=== PATIENT | female | born 1965 | race Caucasian/White ===

== ENCOUNTER 2017-04-18 13:35 | Emergency (ER) | payer MEDICAID ==
[~2017-04-18] VITALS: Ht 165.1 cm; Wt 95.9 kg
[~2017-04-18 13:35] MED LIST: ASPI81TA52 PO; BISA-77 PO; CEPH-357 PO; CHLO500C10 PO; DOCU100C23 PO; FERR325T28 PO; KEP500T PO; LEV500T PO; LEVO100T46 PO; MULT-785 PO; NORG1TAB56 PO; PHEN-403 PO; SODI1TAB23 PO; TEG100T PO; ZIPR20CA2 PO; ZIPR80CA2 PO
[2017-04-18 13:49] VITALS: BP 106/78
== END 2017-04-18 16:55 | disposition home or self-care (01) ==
LOC: ER 13:35
DX: S63.286A Dislocation of proximal interphalangeal joint of right little finger, initial encounter (principal); Z79.82 Long term (current) use of aspirin; W20.8XXA Other cause of strike by thrown, projected or falling object, initial encounter; Y93.89 Activity, other specified; Y92.89 Other specified places as the place of occurrence of the external cause; Y99.8 Other external cause status
CPT/HCPCS: 26770; 73140; 99284

== ENCOUNTER 2017-04-27 12:54 | Outpatient (CLI) | payer MEDICAID ==
[2017-04-27 12:55] VITALS: BP 104/67
== END 2017-04-27 13:45 | disposition home or self-care (01) ==
LOC: ORTHO 12:54
PROVIDERS: ATTEND Nurse Practitioner Family
DX: S63.279A Dislocation of unspecified interphalangeal joint of unspecified finger, initial encounter (principal); F32.9 Major depressive disorder, single episode, unspecified; Z79.82 Long term (current) use of aspirin; X58.XXXA Exposure to other specified factors, initial encounter; Y93.89 Activity, other specified; Y92.89 Other specified places as the place of occurrence of the external cause; Y99.8 Other external cause status; E07.9 Disorder of thyroid, unspecified
CPT/HCPCS: 29130

== ENCOUNTER 2017-04-29 12:04 | Emergency (ER) | payer MEDICAID ==
[~2017-04-29] VITALS: Ht 167.6 cm; Wt 95.9 kg
[2017-04-29] MEDS ORDERED: LIDOcaine 1.5% w/epinephrine 1:200,000 5ml ampul IJ ONE (12:45)
[2017-04-29] MEDS ORDERED: TETanus/Pertussis (Acell)/Diphther VAC/PF (Tdap-Adult) 0.5ml syringe IM ONE (12:45)
[2017-04-29 13:09] LABS: BASOPHILS % (AUTO) 0.3 % (0-1); EOSINOPHILS # (AUTO) 0.1 X10'3 (0-0.9); EOSINOPHILS % (AUTO) 1.2 % (0-6); HEMATOCRIT 41.3 % (35.0-45.0); HEMOGLOBIN 13.8 g/dl (12.0-16.0); LYMPHOCYTES # (AUTO) 1.9 X10'3 (1.1-4.8); LYMPHOCYTES % (AUTO) 20.7 % (21-51); MEAN CORPUSCULAR HEMOGLOBIN 30.2 PG (27.0-31.0); MEAN CORPUSCULAR HGB CONC 33.3 % (33.0-36.5); MEAN CORPUSCULAR VOLUME 90.6 FL (78-98); MEAN PLATELET VOLUME 6.9 FL (7.4-10.4); MONOCYTES # (AUTO) 0.5 X10'3 (0-0.9); MONOCYTES % (AUTO) 5.4 % (2-12); NEUTROPHILS # (AUTO) 6.6 X10'3 (1.8-7.7); NEUTROPHILS % (AUTO) 72.4 % (42-75); PLATELET COUNT 344 X10'3 (140-440); RED BLOOD COUNT 4.56 X10'6 (4.20-5.60); RED CELL DISTRIBUTION WIDTH 13.6 % (11.5-14.5); WHITE BLOOD COUNT 9.1 X10'3 (4.5-11.0)
[2017-04-29 13:20] LABS: PARTIAL THROMBOPLASTIN TIME 31 SECONDS (22-32); PROTHROMBIN TIME 10.3 SECONDS (9.0-12.0)
[2017-04-29 13:25] LABS: ALANINE AMINOTRANSFERASE 29 U/L (12-78); ALBUMIN 3.3 G/DL (3.4-5.0); ALBUMIN/GLOBULIN RATIO 0.8 (1.1-1.5); ANION GAP 4 (8-16); ASPARTATE AMINO TRANSFERASE 26 U/L (10-37); BILIRUBIN,TOTAL 0.3 MG/DL (0.1-1.0); BLOOD UREA NITROGEN 10 MG/DL (7-18); CALCIUM 8.7 MG/DL (8.5-10.1); CARBAMAZEPINE (TEGRETOL) 4.1 UG/ML (4.0-12.0); CHLORIDE 101 MMOL/L (99-107); CREATININE 0.77 MG/DL (0.40-0.90); GLUCOSE 140 MG/DL (70-104); PHENYTOIN (DILANTIN) 12.3 UG/ML (10.0-20.0); POTASSIUM 3.8 MMOL/L (3.5-5.1); SODIUM 137 MMOL/L (135-145); TOTAL CARBON DIOXIDE 32.4 MMOL/L (24-32); TOTAL PROTEIN 7.4 G/DL (6.4-8.2); eGFR 79 ML/MIN
[2017-04-29 13:36] LABS: ALKALINE PHOSPHATASE 211 IU/L (46-116)
[2017-04-29] MEDS ORDERED: phenytoin sod ER 100mg capsule PO ONE (13:45)
[2017-04-29] MEDS ORDERED: LIDOcaine 1% 30ml vial IJ ONE (13:45)
[2017-04-29 14:51] VITALS: BP 125/75
== END 2017-04-29 15:06 | disposition home or self-care (01) ==
LOC: ER 12:04
DX: S01.01XA Laceration without foreign body of scalp, initial encounter (principal); G40.909 Epilepsy, unspecified, not intractable, without status epilepticus; G20 Parkinson's disease; F03.90 Unspecified dementia, unspecified severity, without behavioral disturbance, psychotic disturbance, mood disturbance, and anxiety; X58.XXXA Exposure to other specified factors, initial encounter; Y93.89 Activity, other specified; Y92.89 Other specified places as the place of occurrence of the external cause; Y99.8 Other external cause status; Z79.01 Long term (current) use of anticoagulants; Z56.0 Unemployment, unspecified; Z79.899 Other long term (current) drug therapy
CPT/HCPCS: 12001; 36415; 70450; 80053; 80156; 80185; 83735; 85025; 85610; 85730; 90471; 90715; 99285; A6446; A6449; J3490

== ENCOUNTER 2017-05-04 10:35 | Outpatient (CLI) | payer MEDICAID ==
[2017-05-04 10:38] VITALS: BP 102/75
== END 2017-05-04 12:00 | disposition home or self-care (01) ==
LOC: ORTHO 10:35
PROVIDERS: ATTEND Nurse Practitioner Family
DX: S63.279D Dislocation of unspecified interphalangeal joint of unspecified finger, subsequent encounter (principal); E03.9 Hypothyroidism, unspecified; Z79.82 Long term (current) use of aspirin; Z98.890 Other specified postprocedural states; Z88.8 Allergy status to other drugs, medicaments and biological substances; X58.XXXD Exposure to other specified factors, subsequent encounter
CPT/HCPCS: 73140

== ENCOUNTER 2017-06-01 09:25 | Day surgery (SDC) | payer MEDICAID ==
[2017-05-26 15:48] LABS: BASOPHILS % (AUTO) 0.6 % (0-1); EOSINOPHILS % (AUTO) 0 % (0-6); LYMPHOCYTES # (AUTO) 2.2 X10'3 (1.1-4.8); LYMPHOCYTES % (AUTO) 34.5 % (21-51); MEAN CORPUSCULAR HEMOGLOBIN 30.8 PG (27.0-31.0); MEAN CORPUSCULAR VOLUME 90.4 FL (78-98); MEAN PLATELET VOLUME 7.1 FL (7.4-10.4); MONOCYTES # (AUTO) 0.5 X10'3 (0-0.9); MONOCYTES % (AUTO) 8.2 % (2-12); NEUTROPHILS # (AUTO) 3.6 X10'3 (1.8-7.7); NEUTROPHILS % (AUTO) 56.7 % (42-75); PRE OP HEMATOCRIT 39.6 % (35.0-45.0); PRE OP HEMOGLOBIN 13.5 g/dL (12.0-16.0); PRE OP PLATELET COUNT 376 X10'3 (140-440); RED BLOOD COUNT 4.38 X10'6 (4.20-5.60); RED CELL DISTRIBUTION WIDTH 14.2 % (11.5-14.5)
[2017-05-26 16:04] LABS: ALBUMIN 3.2 G/DL (3.4-5.0); ALBUMIN/GLOBULIN RATIO 0.8 (1.1-1.5); ALKALINE PHOSPHATASE 208 IU/L (46-116); BLOOD UREA NITROGEN 10 MG/DL (7-18); BUN/CREATININE RATIO 12.7 (6.6-38.0); CALCIUM 8.8 MG/DL (8.5-10.1); CHLORIDE 104 MMOL/L (99-107); CREATININE 0.79 MG/DL (0.40-0.90); PRE OP ALT 28 U/L (30-65); PRE OP ANION GAP 5 (8-16); PRE OP AST 25 U/L (10-37); PRE OP BILIRUB, TOTAL 0.2 MG/DL (0.0-1.0); PRE OP GLUCOSE 93 MG/DL (70-104); PRE OP POTASSIUM 4.2 MMOL/L (3.4-5.1); PRE OP SODIUM 141 MMOL/L (135-145); TOTAL CARBON DIOXIDE 32.5 MMOL/L (24-32); TOTAL PROTEIN 7.2 G/DL (6.4-8.2); eGFR 76 ML/MIN
[~2017-06-01] VITALS: Ht 167.6 cm; Wt 98.0 kg
[2017-06-01] VITALS (9 sets, daily range): BP systolic 95–124; BP diastolic 61–75
[~2017-06-01 09:25] MED LIST changes: -CHLO500C10 PO; +LAMO150T PO; -LEV500T PO; -NORG1TAB56 PO; -PHEN-403 PO; +PHEN100C4 PO; +TEN1T CORPAK; -ZIPR20CA2 PO; +ZIPR40CA2 PO; -ZIPR80CA2 PO; +cefazolin/dext.iso 2gm/50ml 50 ML IV ONE; +famotidine 20mg tablet PO ONE; +ringers solution, lacted 1,000 ML IV SCH; +vancomycin inj 1,500 MG in normal saline 300ml IV soln IV ONE
[2017-06-01] MEDS ORDERED: LIDOcaine 1% (10mg/ml) 2ml vial ONE (11:56)
[2017-06-01] MEDS ORDERED: ceFAZolin 1000mg inj ONE (12:19)
[2017-06-01] MEDS ORDERED: bacitracin 15gm ointment TP ONE ×2 (12:19→12:28)
[2017-06-01] MEDS ORDERED: BUPIVAcaine/PF 2.5 mg/ml (0.25%) 30ml vial ONE ×3 (12:20→13:23)
[2017-06-01] MEDS ORDERED: ringers solution, lacted 1,000 ML IV SCH (12:44)
[2017-06-01] MEDS ORDERED: ketorolac tromethamine 15mg/ml inj. IV ONE (12:45)
[2017-06-01] MEDS ORDERED: meperidine/PF 50mg/ml syringe IV PRN ×3 (12:45)
[2017-06-01] MEDS ORDERED: proCHLORperazine 10 MG/2 ml inj IV PRN (12:45)
[2017-06-01] MEDS ORDERED: morphine 2 MG/ML inj. syringe IV PRN ×2 (12:45)
[2017-06-01] MEDS ORDERED: acetaminophen 1,000mg/100ml IV 100 ML IV PRN (12:45)
[2017-06-01] MEDS ORDERED: ondansetron/PF 4mg/2ml inj IV PRN (12:45)
[2017-06-01] MEDS ORDERED: midazolam 2 mg/2 ml injection ONE (12:52)
[2017-06-01] MEDS ORDERED: fentaNYL/PF 50MCG/1 ML 2ML syringe ONE (13:15)
[2017-06-01] MEDS ORDERED: ePHEDrine 50MG/ML INJ. ONE (13:23)
[2017-06-01] MEDS ORDERED: LIDOcaine 2% (20mg/ml) 5ml vial ONE (13:23)
[2017-06-01] MEDS ORDERED: propofol inj 20 ML IV ONE (13:23)
== END 2017-06-01 15:45 | disposition home or self-care (01) ==
LOC: PAS 09:25
PROVIDERS: ATTEND Orthopaedic Surgery
DX: S62.616A Displaced fracture of proximal phalanx of right little finger, initial encounter for closed fracture (principal); S63.286A Dislocation of proximal interphalangeal joint of right little finger, initial encounter; G20 Parkinson's disease; E03.9 Hypothyroidism, unspecified; F32.9 Major depressive disorder, single episode, unspecified; F41.9 Anxiety disorder, unspecified; Z79.82 Long term (current) use of aspirin; Z79.2 Long term (current) use of antibiotics; Z79.899 Other long term (current) drug therapy; W18.39XA Other fall on same level, initial encounter; Y93.89 Activity, other specified; Y92.9 Unspecified place or not applicable; Y99.8 Other external cause status
CPT/HCPCS: 26746; 36415; 80053; 85025; 93005; A4565; A6449; J0690; J2001; J2250; J2704; J3010; J3370; J3490; J7120; A7000

== ENCOUNTER 2017-06-10 10:44 | Outpatient (CLI) | payer MEDICAID ==
[~2017-06-10 10:44] MED LIST changes: -cefazolin/dext.iso 2gm/50ml 50 ML IV ONE; -famotidine 20mg tablet PO ONE; -ringers solution, lacted 1,000 ML IV SCH; -vancomycin inj 1,500 MG in normal saline 300ml IV soln IV ONE
[2017-06-10 10:46] VITALS: BP 126/72
== END 2017-06-10 11:55 | disposition home or self-care (01) ==
LOC: ORTHO 10:44
PROVIDERS: ATTEND Nurse Practitioner Family
DX: S63.279D Dislocation of unspecified interphalangeal joint of unspecified finger, subsequent encounter (principal); F32.9 Major depressive disorder, single episode, unspecified; W01.0XXD Fall on same level from slipping, tripping and stumbling without subsequent striking against object, subsequent encounter
CPT/HCPCS: 29125; 99214; A6449

== ENCOUNTER 2017-06-28 11:33 | Outpatient (CLI) | payer MEDICAID | END 2017-06-28 12:25 | disposition home or self-care (01) | LOC: ORTHO 11:33 | PROVIDERS: ATTEND Nurse Practitioner Family | DX: S63.279D Dislocation of unspecified interphalangeal joint of unspecified finger, subsequent encounter (principal); M79.89 Other specified soft tissue disorders; F32.9 Major depressive disorder, single episode, unspecified; R56.9 Unspecified convulsions; X58.XXXD Exposure to other specified factors, subsequent encounter | CPT/HCPCS: 29280; 73140; 99213 ==

== ENCOUNTER 2017-08-02 08:49 | Outpatient (CLI) | payer MEDICAID | END 2017-08-02 09:10 | disposition home or self-care (01) | LOC: ORTHO 08:49 | PROVIDERS: ATTEND Nurse Practitioner Family | DX: S63.27 Dislocation of unspecified interphalangeal joint of finger (principal); F32.9 Major depressive disorder, single episode, unspecified; Z56.0 Unemployment, unspecified; W01.0XXD Fall on same level from slipping, tripping and stumbling without subsequent striking against object, subsequent encounter | CPT/HCPCS: 73140; 99212 ==

== ENCOUNTER 2018-04-26 10:45 | Emergency (ER) | payer MEDICAID ==
[~2018-04-26] VITALS: Ht 152.4 cm; Wt 98.8 kg
[~2018-04-26 10:45] MED LIST changes: +DOCU-274 PO; -DOCU100C23 PO
--- NOTE | 2018-04-26 11:16 | NUR ---
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
--- NOTE | 2018-04-26 11:19 | NUR ---
BURGLAR ALARM INSPECTOR AT BEDSIDE
[2018-04-26] MEDS ORDERED: TETanus/Pertussis (Acell)/Diphther VAC/PF (Tdap-Adult) 0.5ml syringe IM ONE (11:40)
[2018-04-26] MEDS ORDERED: LIDOcaine 1.5% w/epinephrine 1:200,000 5ml ampul IJ ONE (11:40)
[2018-04-26] MEDS ORDERED: LIDOcaine 1% w/epiNEPHrine 1:200,000 30ml vial IJ ONE (11:45)
[2018-04-26 12:07] LABS: CARBAMAZEPINE (TEGRETOL) 3.5 UG/ML (4.0-12.0); PHENYTOIN (DILANTIN) 15.4 UG/ML (10.0-20.0)
[2018-04-26] MEDS ORDERED: carBAMazepine Ext. Release 200 MG TAB.ER.12H PO ONE (12:30)
[2018-04-26 13:21] VITALS: BP 115/63
== END 2018-04-26 13:27 | disposition home or self-care (01) ==
LOC: ER 10:46
DX: S01.412A Laceration without foreign body of left cheek and temporomandibular area, initial encounter (principal); G40.909 Epilepsy, unspecified, not intractable, without status epilepticus; E03.9 Hypothyroidism, unspecified; Z79.82 Long term (current) use of aspirin; Z79.899 Other long term (current) drug therapy; Z79.2 Long term (current) use of antibiotics; Z56.0 Unemployment, unspecified; W22.8XXA Striking against or struck by other objects, initial encounter; Y93.89 Activity, other specified; Y92.89 Other specified places as the place of occurrence of the external cause; Y99.8 Other external cause status
CPT/HCPCS: 12011; 36415; 80156; 80185; 90471; 90715; 99284; J3490

== ENCOUNTER 2018-05-01 08:57 | Emergency (ER) | payer MEDICAID ==
[~2018-05-01] VITALS: Ht 177.8 cm; Wt 97.1 kg
[2018-05-01 09:04] VITALS: BP 100/69
== END 2018-05-01 10:09 | disposition home or self-care (01) ==
LOC: ER 08:58
DX: S01.412D Laceration without foreign body of left cheek and temporomandibular area, subsequent encounter (principal); E03.9 Hypothyroidism, unspecified; Z56.0 Unemployment, unspecified; Z79.899 Other long term (current) drug therapy; Z79.82 Long term (current) use of aspirin; W22.8XXD Striking against or struck by other objects, subsequent encounter
CPT/HCPCS: 99281

== ENCOUNTER 2018-06-10 10:18 | Inpatient (IN) | payer MEDICAID ==
[2018-06-10] VITALS (12 sets, daily range): BP systolic 87–121; BP diastolic 53–88
[~2018-06-10] VITALS: Ht 162.6 cm; Wt 95.0 kg
[2018-06-10] MEDS ORDERED: ketamine 50 mg/ml 10ml vial IV ONE (10:35)
[2018-06-10] MEDS ORDERED: ceFAZolin 1GM/D5W- ADD-VANTAGE 50 ML IV ONE (10:35)
[2018-06-10] MEDS ORDERED: ondansetron/PF 4mg/2ml inj IV ONE (10:35)
[2018-06-10] MEDS ORDERED: normal saline 1000ML IV soln IVB ONE (10:35)
--- NOTE | 2018-06-10 11:10 | NUR ---
PATIENT TOLERATED THE REDUCTION OF THE RADIAL FRACTURE VERY WELL. SHE DID NOT DESAT DURING THE PROCEDURE AND MAINTAINED AN ETCO2 OF 39.
--- NOTE | 2018-06-10 11:45 | NUR ---
COMPLETELY RECOVERED FROM THE USE OF KETAMINE. ALERT AND BREATHING WELL
[2018-06-10] MEDS ORDERED: acetaminophen 325mg tablet PO PRN ×2 (12:15)
[2018-06-10] MEDS ORDERED: mag hydrox/Alum hydrox/simeth 30ml oral suspension PO PRN (12:15)
[2018-06-10] MEDS ORDERED: HYDROcodone/acetaminophen 5mg/325mg tablet PO PRN (12:15)
[2018-06-10] MEDS ORDERED: magnesium 4gm in 100ml NS 100 ML IV PRN (12:15)
[2018-06-10] MEDS ORDERED: magnesium Cl slow-release 64mg tablet PO PRN (12:15)
[2018-06-10] MEDS ORDERED: magnesium 2GM in 50ml NS 50 ML IV PRN (12:15)
[2018-06-10] MEDS ORDERED: morphine 4 MG/ML inj SYRINge IV PRN ×4 (12:15→15:35)
[2018-06-10] MEDS ORDERED: potassium Cl 40MEQ/NS 500ml 500 ML IV PRN ×2 (12:15)
[2018-06-10] MEDS ORDERED: potassium Cl 20 mEq SR tablet PO PRN (12:15)
[2018-06-10] MEDS ORDERED: magnesium hydroxide 30ml (MOM) UD suspension PO PRN (12:15)
[2018-06-10] MEDS ORDERED: ondansetron/PF 4mg/2ml inj IV PRN ×2 (12:15→15:35)
[2018-06-10 12:22] LABS: BASOPHILS # (AUTO) 0.1 X10'3 (0-0.2); BASOPHILS % (AUTO) 1.3 % (0-1); EOSINOPHILS % (AUTO) 0 % (0-6); HEMATOCRIT 42.2 % (35.0-45.0); HEMOGLOBIN 13.9 g/dl (12.0-16.0); LYMPHOCYTES # (AUTO) 1.2 X10'3 (1.1-4.8); LYMPHOCYTES % (AUTO) 16.6 % (21-51); MEAN CORPUSCULAR HEMOGLOBIN 30.3 PG (27.0-31.0); MEAN CORPUSCULAR HGB CONC 33.1 g/dL (33.0-36.5); MEAN CORPUSCULAR VOLUME 91.7 FL (78-98); MEAN PLATELET VOLUME 7.5 FL (7.4-10.4); MONOCYTES # (AUTO) 0.5 X10'3 (0-0.9); MONOCYTES % (AUTO) 7.5 % (2-12); NEUTROPHILS # (AUTO) 5.4 X10'3 (1.8-7.7); NEUTROPHILS % (AUTO) 74.6 % (42-75); PLATELET COUNT 345 X10'3 (140-440); WHITE BLOOD COUNT 7.3 X10'3 (4.5-11.0)
[2018-06-10 12:33] LABS: PARTIAL THROMBOPLASTIN TIME 30 SECONDS (22-32); PROTHROMBIN TIME 10.3 SECONDS (9.0-12.0)
[2018-06-10 12:37] LABS: ALANINE AMINOTRANSFERASE 21 U/L (12-78); ALBUMIN 3.5 G/DL (3.4-5.0); ALBUMIN/GLOBULIN RATIO 0.9 (1.1-1.5); ALKALINE PHOSPHATASE 180 IU/L (46-116); ANION GAP 7 (8-16); ASPARTATE AMINO TRANSFERASE 25 U/L (10-37); BILIRUBIN,TOTAL 0.3 MG/DL (0.1-1.0); BLOOD UREA NITROGEN 7 MG/DL (7-18); BUN/CREATININE RATIO 9.1 (6.6-38.0); CALCIUM 9.2 MG/DL (8.5-10.1); CHLORIDE 104 MMOL/L (99-107); CREATININE 0.77 MG/DL (0.40-0.90); GLUCOSE 95 MG/DL (70-104); POTASSIUM 4.1 MMOL/L (3.5-5.1); SODIUM 140 MMOL/L (135-145); TOTAL CARBON DIOXIDE 28.8 MMOL/L (24-32); TOTAL PROTEIN 7.6 G/DL (6.4-8.2); eGFR 78 ML/MIN
[2018-06-10] MEDS: morphine 4 MG/ML inj SYRINge IV SCH ×2 (12:40→20:00)
[2018-06-10] MEDS: normal saline 1000ml 1,000 ML IV SCH (12:43)
[2018-06-10 12:46] LABS: PHENYTOIN (DILANTIN) 12.7 UG/ML (10.0-20.0)
--- NOTE | 2018-06-10 13:52 | NUR ---
CAREGIVER LEAVING WITH NUMBER TO CONTACT [phone]. STATED THAT PT. IS NOT CONSERVED AND CAN SIGN HER OWN CONCENTS.
[2018-06-10] MEDS ORDERED: LIDOcaine 1% (10mg/ml) 2ml vial ONE (14:23)
[2018-06-10] MEDS ORDERED: sevoflurane 250ml liquid IH ONE (14:32)
[2018-06-10] MEDS ORDERED: fentaNYL /PF 50mcg/ml 5ml ampule ONE (14:33)
[2018-06-10] MEDS ORDERED: midazolam 2 mg/2 ml injection ONE (14:33)
[2018-06-10] MEDS ORDERED: ceFAZolin 1000mg inj ONE ×2 (14:54)
[2018-06-10] MEDS ORDERED: propofol inj 20 ML IV ONE (14:54)
[2018-06-10] MEDS ORDERED: ringers solution, lacted 1,000 ML IV SCH (15:33)
[2018-06-10] MEDS ORDERED: proCHLORperazine 10 MG/2 ml inj IV PRN (15:35)
[2018-06-10] MEDS ORDERED: meperidine/PF 25mg/ml syringe IV PRN ×2 (15:35)
[2018-06-10] MEDS ORDERED: ceFAZolin 1GM/D5W- ADD-VANTAGE 50 ML IV SCH (16:00)
--- NOTE | 2018-06-10 16:10 | NUR ---
Received from OR via , accompanied by Anesthesiologist DR DÍAZ and report given by Anesthesiolgist. PT WAKES TO VOICE, SKIN WARM AND PINK, SCDS, PIV LEFT WRIST 22G WITH NS 100MLS/HR, RIGHT UE WITH SPLINT, ANGIE WRAP AND SLING, NO C/O PAIN, RIGHT HAND SKIN WARM, MOVING FINGERS.
[2018-06-10] MEDS: meperidine/PF 25mg/ml syringe IV PRN ×2 (16:13→16:22)
--- NOTE | 2018-06-10 16:30 | NUR ---
i HAVE RECEIVED REPORT FROM KRISTA IN [facility]
--- NOTE | 2018-06-10 16:37 | NUR ---
ReceReport called to receiving nurse. Transferred via BED Belongings . Special Issues communicated to receiving nurse KELECHI BREWER. PT IS AWAKE, DUE TO DEVEOPMENTAL DELAY PATIENT SHOUTS OUT AND CRIES. DISTRACTION TECHNIQUES SOMEWHAT EFFECTIVE. RIGHT UE ELEVATED, ICED AND GIVEN DEMEROL FOR PAIN, RIGHT HAND HAS +MOTION, PINK COLOR, AND WARM TO TOUCH, SPINT, ANGIE AND SLING IN PLACE, CD, VSS, PIV PATENT.
[2018-06-10] MEDS: HYDROcodone/acetaminophen 10/325mg tab PO PRN (16:57)
[2018-06-10] MEDS: ceFAZolin 1GM/D5W- ADD-VANTAGE 50 ML IV SCH (17:03)
--- NOTE | 2018-06-10 17:48 | NUR ---
PAGER ID: [phone] MESSAGE: Patient Valerie Castorena is refusing lab. Samina Emerson [id number] Addendum: 06/10/18 at 1755 by Laila Pascual RN feed research technician said that she would add this test onto AM labs because the test has to be sent out, and it would have to wait until then either way.
--- NOTE | 2018-06-10 18:10 | NUR ---
DR. Beaulieu aware of patient refusing lab
--- NOTE | 2018-06-10 18:27 | NUR ---
I gave patient report to Valerie BREWER
[2018-06-10] MEDS: heparin, porcine 5000 units/ml vial SQ SCH (19:22)
[2018-06-10] MEDS ORDERED: temazepam 15mg capsule PO PRN (21:00)
[2018-06-11] MEDS: normal saline 1000ml 1,000 ML IV SCH ×3 (01:09→21:04)
[2018-06-11] MEDS: ceFAZolin 1GM/D5W- ADD-VANTAGE 50 ML IV SCH ×4 (01:13→23:53)
[2018-06-11 02:32] VITALS: BP 118/75
--- NOTE | 2018-06-11 03:08 | NUR ---
reviewed and agree with SRN assessment findings.
[2018-06-11] MEDS: HYDROcodone/acetaminophen 10/325mg tab PO PRN ×5 (03:51→21:04)
[2018-06-11] MEDS: morphine 4 MG/ML inj SYRINge IV SCH ×4 (04:00→12:00)
[2018-06-11 06:00] VITALS: BP 108/68
[2018-06-11 06:15] LABS: BASOPHILS # (AUTO) 0.1 X10'3 (0-0.2); EOSINOPHILS % (AUTO) 0 % (0-6); HEMATOCRIT 37.5 % (35.0-45.0); HEMOGLOBIN 12.3 g/dl (12.0-16.0); LYMPHOCYTES # (AUTO) 1.5 X10'3 (1.1-4.8); LYMPHOCYTES % (AUTO) 20.4 % (21-51); MEAN CORPUSCULAR HEMOGLOBIN 30.1 PG (27.0-31.0); MEAN CORPUSCULAR HGB CONC 32.8 g/dL (33.0-36.5); MEAN CORPUSCULAR VOLUME 91.8 FL (78-98); MEAN PLATELET VOLUME 7.5 FL (7.4-10.4); MONOCYTES # (AUTO) 0.7 X10'3 (0-0.9); MONOCYTES % (AUTO) 9.4 % (2-12); NEUTROPHILS # (AUTO) 5.2 X10'3 (1.8-7.7); NEUTROPHILS % (AUTO) 69.2 % (42-75); PLATELET COUNT 349 X10'3 (140-440); RED BLOOD COUNT 4.09 X10'6 (4.20-5.60); RED CELL DISTRIBUTION WIDTH 14.2 % (11.5-14.5); WHITE BLOOD COUNT 7.5 X10'3 (4.5-11.0)
--- NOTE | 2018-06-11 06:16 | NUR ---
Problems reprioritized. Patient report given, questions answered & plan of care reviewed with DANIELLA Wang.
[2018-06-11 06:44] LABS: ALANINE AMINOTRANSFERASE 16 U/L (12-78); ALBUMIN 2.8 G/DL (3.4-5.0); ALBUMIN/GLOBULIN RATIO 0.8 (1.1-1.5); ALKALINE PHOSPHATASE 155 IU/L (46-116); ANION GAP 6 (8-16); ASPARTATE AMINO TRANSFERASE 18 U/L (10-37); BILIRUBIN,TOTAL 0.4 MG/DL (0.1-1.0); BLOOD UREA NITROGEN 6 MG/DL (7-18); BUN/CREATININE RATIO 10.9 (6.6-38.0); CALCIUM 8.4 MG/DL (8.5-10.1); CHLORIDE 105 MMOL/L (99-107); CREATININE 0.55 MG/DL (0.40-0.90); GLUCOSE 106 MG/DL (70-104); MAGNESIUM 1.8 MG/DL (1.5-2.4); POTASSIUM 3.8 MMOL/L (3.5-5.1); SODIUM 138 MMOL/L (135-145); TOTAL CARBON DIOXIDE 27.4 MMOL/L (24-32); TOTAL PROTEIN 6.4 G/DL (6.4-8.2); eGFR > 90 ML/MIN
[2018-06-11] MEDS: heparin, porcine 5000 units/ml vial SQ SCH ×2 (08:00→21:07)
[2018-06-11] MEDS: K and/or MAG REPLACEMENT MC SCH (08:00)
--- NOTE | 2018-06-11 08:00 | NUR ---
Pt refused Orthostatic Vital Signs.
[2018-06-11 10:00] VITALS: BP 131/85
[2018-06-11] MEDS ORDERED: bisacodyl 5mg tablet.DR PO PRN (12:35)
--- NOTE | 2018-06-11 13:01 | NUR ---
Tele called patient HR was in the 150's, primary nurse notified.
--- NOTE | 2018-06-11 13:05 | NUR ---
Received telephone call from Tele who reported that HR was 150's. Went to room. Gurinder Roche RN was at pts bedside. DANIELLA Roche had medicated pt for pain approximately 10 minutes prior to TC from telemetry. Pt was noted to be post ictal following seizure, was foaming at the mouth. HR 126. B/P 151/99. P.O. 97% on 2L/NC. TC placed to to report seizure and tele report and current vital signs. Pt returned to a/o and speaking at approximately 1320. Keppra given (new Order) at this time. Pt feeling better. 1400 HR decreased to 96/min. Pt talkative and a/o at this time. Will continue to monitor pt needs and assessment.
[2018-06-11] MEDS: levetiracetam 250mg tablet PO SCH ×2 (13:10→21:03)
[2018-06-11] MEDS ORDERED: LORazepam 2 mg/ml vial IV PRN (13:30)
[2018-06-11 18:00] VITALS: BP 138/84
--- NOTE | 2018-06-11 18:17 | NUR ---
PATIENT REPORT RECEIVED FROM BROCK BREWER.
[2018-06-11] MEDS: lamoTRIgine 100mg tablet PO SCH (21:02)
[2018-06-11] MEDS: ferrous sulfate 325mg tablet PO SCH (21:03)
[2018-06-11] MEDS: lactobacillus rhamnosus 10,000 MMU CELLS/CAPSULE PO SCH (21:03)
[2018-06-11] MEDS: docusate sod 250mg capsule PO SCH (21:03)
[2018-06-11] MEDS: phenytoin sod ER 100mg capsule PO SCH (21:03)
[2018-06-11] MEDS: carBAMazepine 100mg chewable tablet PO SCH (21:03)
[2018-06-11] MEDS: lamoTRIgine 25mg tablet PO SCH (21:03)
[2018-06-11] MEDS: ziprasidone 20mg capsule PO SCH (21:17)
[2018-06-11 22:00] VITALS: BP 129/79
[2018-06-12] MEDS: HYDROcodone/acetaminophen 10/325mg tab PO PRN ×3 (03:40→13:01)
[2018-06-12] MEDS: normal saline 1000ml 1,000 ML IV SCH ×2 (05:57→16:50)
[2018-06-12 06:00] VITALS: BP 123/75
--- NOTE | 2018-06-12 06:05 | NUR ---
PATIENT REPORT GIVEN TO BROCK BREWER.
--- NOTE | 2018-06-12 06:33 | NUR ---
Patient in room ORTHO 4022. I have received report from DANIELLA Sagastume and had the opportunity to ask questions and assume patient care.
[2018-06-12 06:37] LABS: BASOPHILS # (AUTO) 0.1 X10'3 (0-0.2); BASOPHILS % (AUTO) 0.8 % (0-1); EOSINOPHILS % (AUTO) 0 % (0-6); HEMATOCRIT 37.8 % (35.0-45.0); HEMOGLOBIN 12.6 g/dl (12.0-16.0); LYMPHOCYTES # (AUTO) 1.6 X10'3 (1.1-4.8); LYMPHOCYTES % (AUTO) 21.5 % (21-51); MEAN CORPUSCULAR HEMOGLOBIN 30.5 PG (27.0-31.0); MEAN CORPUSCULAR HGB CONC 33.4 g/dL (33.0-36.5); MEAN CORPUSCULAR VOLUME 91.5 FL (78-98); MEAN PLATELET VOLUME 7.4 FL (7.4-10.4); MONOCYTES # (AUTO) 0.7 X10'3 (0-0.9); MONOCYTES % (AUTO) 9.2 % (2-12); NEUTROPHILS # (AUTO) 5.1 X10'3 (1.8-7.7); NEUTROPHILS % (AUTO) 68.5 % (42-75); PLATELET COUNT 334 X10'3 (140-440); RED BLOOD COUNT 4.13 X10'6 (4.20-5.60); WHITE BLOOD COUNT 7.4 X10'3 (4.5-11.0)
[2018-06-12 06:39] LABS: ALANINE AMINOTRANSFERASE 12 U/L (12-78); ALBUMIN 2.8 G/DL (3.4-5.0); ALBUMIN/GLOBULIN RATIO 0.8 (1.1-1.5); ALKALINE PHOSPHATASE 151 IU/L (46-116); ANION GAP 8 (8-16); ASPARTATE AMINO TRANSFERASE 20 U/L (10-37); BILIRUBIN,TOTAL 0.4 MG/DL (0.1-1.0); BLOOD UREA NITROGEN 6 MG/DL (7-18); BUN/CREATININE RATIO 11.1 (6.6-38.0); CALCIUM 8.6 MG/DL (8.5-10.1); CHLORIDE 105 MMOL/L (99-107); CREATININE 0.54 MG/DL (0.40-0.90); GLUCOSE 99 MG/DL (70-104); MAGNESIUM 1.7 MG/DL (1.5-2.4); POTASSIUM 3.4 MMOL/L (3.5-5.1); SODIUM 141 MMOL/L (135-145); TOTAL CARBON DIOXIDE 27.6 MMOL/L (24-32); TOTAL PROTEIN 6.5 G/DL (6.4-8.2); eGFR > 90 ML/MIN
[2018-06-12] MEDS: heparin, porcine 5000 units/ml vial SQ SCH ×2 (08:00→20:34)
--- NOTE | 2018-06-12 08:00 | NUR ---
Pt refused orthostatic vital signs.
[2018-06-12] MEDS: ceFAZolin 1GM/D5W- ADD-VANTAGE 50 ML IV SCH ×2 (08:09→16:50)
[2018-06-12] MEDS: phenytoin sod ER 100mg capsule PO SCH ×2 (08:11→20:33)
[2018-06-12] MEDS: docusate sod 250mg capsule PO SCH ×2 (08:11→20:31)
[2018-06-12] MEDS: aspirin 81mg tablet.DR PO SCH (08:12)
[2018-06-12] MEDS: ferrous sulfate 325mg tablet PO SCH ×2 (08:12→20:31)
[2018-06-12] MEDS: levetiracetam 250mg tablet PO SCH ×3 (08:12→20:32)
[2018-06-12] MEDS: ziprasidone 20mg capsule PO SCH ×2 (08:12→20:32)
[2018-06-12] MEDS: lamoTRIgine 100mg tablet PO SCH ×2 (08:12→20:33)
[2018-06-12] MEDS: lactobacillus rhamnosus 10,000 MMU CELLS/CAPSULE PO SCH ×2 (08:12→20:33)
[2018-06-12] MEDS: lamoTRIgine 25mg tablet PO SCH ×2 (08:13→20:33)
[2018-06-12] MEDS: carBAMazepine 100mg chewable tablet PO SCH ×2 (08:14→20:32)
[2018-06-12] MEDS: levoTHYROXINE 100mcg tablet PO SCH (08:14)
[2018-06-12] MEDS: potassium Cl 20 mEq SR tablet PO PRN ×3 (08:14→16:59)
[2018-06-12] MEDS: multivitamins, therapeutics tablet PO SCH (08:14)
[2018-06-12] MEDS: K and/or MAG REPLACEMENT MC SCH (08:29)
[2018-06-12 10:00] VITALS: BP 112/74
[2018-06-12 18:00] VITALS: BP 111/78
[2018-06-12 22:00] VITALS: BP 129/77
[2018-06-13] MEDS: normal saline 1000ml 1,000 ML IV SCH (00:11)
[2018-06-13] MEDS: HYDROcodone/acetaminophen 10/325mg tab PO PRN ×2 (00:40→13:34)
[2018-06-13] MEDS: ceFAZolin 1GM/D5W- ADD-VANTAGE 50 ML IV SCH ×2 (00:41→09:12)
[2018-06-13 05:37] LABS: BASOPHILS # (AUTO) 0.1 X10'3 (0-0.2); BASOPHILS % (AUTO) 1.3 % (0-1); EOSINOPHILS % (AUTO) 0 % (0-6); HEMATOCRIT 37.7 % (35.0-45.0); HEMOGLOBIN 12.7 g/dl (12.0-16.0); LYMPHOCYTES # (AUTO) 2.2 X10'3 (1.1-4.8); LYMPHOCYTES % (AUTO) 34.2 % (21-51); MEAN CORPUSCULAR HEMOGLOBIN 30.8 PG (27.0-31.0); MEAN CORPUSCULAR HGB CONC 33.7 g/dL (33.0-36.5); MEAN CORPUSCULAR VOLUME 91.4 FL (78-98); MEAN PLATELET VOLUME 7.4 FL (7.4-10.4); MONOCYTES # (AUTO) 0.7 X10'3 (0-0.9); MONOCYTES % (AUTO) 10.5 % (2-12); NEUTROPHILS # (AUTO) 3.4 X10'3 (1.8-7.7); PLATELET COUNT 338 X10'3 (140-440); RED BLOOD COUNT 4.13 X10'6 (4.20-5.60); RED CELL DISTRIBUTION WIDTH 13.9 % (11.5-14.5); WHITE BLOOD COUNT 6.3 X10'3 (4.5-11.0)
[2018-06-13 05:45] LABS: ALANINE AMINOTRANSFERASE 10 U/L (12-78); ALBUMIN 2.6 G/DL (3.4-5.0); ALBUMIN/GLOBULIN RATIO 0.7 (1.1-1.5); ALKALINE PHOSPHATASE 139 IU/L (46-116); ANION GAP 6 (8-16); ASPARTATE AMINO TRANSFERASE 19 U/L (10-37); BILIRUBIN,TOTAL 0.4 MG/DL (0.1-1.0); BLOOD UREA NITROGEN 6 MG/DL (7-18); BUN/CREATININE RATIO 10.9 (6.6-38.0); CALCIUM 8.5 MG/DL (8.5-10.1); CHLORIDE 106 MMOL/L (99-107); CREATININE 0.55 MG/DL (0.40-0.90); GLUCOSE 88 MG/DL (70-104); MAGNESIUM 1.7 MG/DL (1.5-2.4); POTASSIUM 3.9 MMOL/L (3.5-5.1); SODIUM 140 MMOL/L (135-145); TOTAL CARBON DIOXIDE 27.6 MMOL/L (24-32); TOTAL PROTEIN 6.5 G/DL (6.4-8.2); eGFR > 90 ML/MIN
[2018-06-13 06:00] VITALS: BP 126/77
--- NOTE | 2018-06-13 06:27 | NUR ---
REPORT GIVEN TO DANIELLA SESAY.
--- NOTE | 2018-06-13 06:32 | NUR ---
received report from Yelena BREWER
[2018-06-13] MEDS: K and/or MAG REPLACEMENT MC SCH (08:00)
[2018-06-13] MEDS: heparin, porcine 5000 units/ml vial SQ SCH (08:00)
[2018-06-13] MEDS: ferrous sulfate 325mg tablet PO SCH (09:08)
[2018-06-13] MEDS: aspirin 81mg tablet.DR PO SCH (09:08)
[2018-06-13] MEDS: multivitamins, therapeutics tablet PO SCH (09:09)
[2018-06-13] MEDS: lamoTRIgine 25mg tablet PO SCH (09:09)
[2018-06-13] MEDS: lamoTRIgine 100mg tablet PO SCH (09:09)
[2018-06-13] MEDS: lactobacillus rhamnosus 10,000 MMU CELLS/CAPSULE PO SCH (09:09)
[2018-06-13] MEDS: docusate sod 250mg capsule PO SCH (09:09)
[2018-06-13] MEDS: levoTHYROXINE 100mcg tablet PO SCH (09:10)
[2018-06-13] MEDS: phenytoin sod ER 100mg capsule PO SCH (09:11)
[2018-06-13] MEDS: carBAMazepine 100mg chewable tablet PO SCH (09:11)
[2018-06-13] MEDS: ziprasidone 20mg capsule PO SCH (09:12)
[2018-06-13] MEDS: levetiracetam 250mg tablet PO SCH ×2 (09:12→13:34)
--- NOTE | 2018-06-13 09:13 | NUR ---
Patient refused her orthostatic vitals
[2018-06-13] MEDS ORDERED: CEPH500C5 PO (09:38)
[2018-06-13] MEDS ORDERED: ACET-3067 PO (09:38)
[2018-06-13 11:57] VITALS: BP 139/89
--- NOTE | 2018-06-13 14:25 | NUR ---
patient was discharged IV and tele was removed from patient. patient was alert and oriented at time of discharge. Patient stated that her caregiver dante will take her home. Medication was brought to the patient via huber
== END 2018-06-13 13:30 | disposition home health service (06) | DRG 315 ==
LOC: ER 10:18 → ED HOLD 12:11 → ORTHO 4S 14:00
PROVIDERS: ADMIT Internal Medicine; ATTEND Family Medicine
PROC: 0RSNXZZ Reposition Right Wrist Joint, External Approach (ICD-10-PCS; 2018-06-10)
PROC: 0PSH04Z Reposition Right Radius with Internal Fixation Device, Open Approach (ICD-10-PCS; principal; 2018-06-10 14:32)
DX: S52.54 Smith's fracture (principal); E03.9 Hypothyroidism, unspecified; G40.909 Epilepsy, unspecified, not intractable, without status epilepticus; E87.6 Hypokalemia; R62.50 Unspecified lack of expected normal physiological development in childhood; W01.0XXA Fall on same level from slipping, tripping and stumbling without subsequent striking against object, initial encounter; Y93.89 Activity, other specified; Y92.89 Other specified places as the place of occurrence of the external cause; Y99.8 Other external cause status; Z79.899 Other long term (current) drug therapy
CPT/HCPCS: 36415; 71045; 73100; 73110; 76000; 80053; 80177; 80185; 83735; 85025; 85610; 85730; 87070; 93005; 94760; 96365; 96375; 99285; A6222; A6449; A7000; C1713; G0378; J0690; J1644; J2175; J2250; J2270; J2405; J2704; J3010; J3490; J7030; J7120

== ENCOUNTER 2019-05-23 15:45 | Emergency (ER) | payer MEDICAID ==
[~2019-05-23] VITALS: Ht 162.6 cm; Wt 86.0 kg
[~2019-05-23 15:45] MED LIST changes: -CEPH-357 PO; +CEPH500C5 PO; -LAMO150T PO; +LAMO150T6 PO; -TEN1T CORPAK
[2019-05-23 15:50] VITALS: BP 123/89
[2019-05-23] MEDS ORDERED: HYDR-3965 PO (17:14)
== END 2019-05-23 17:22 | disposition home or self-care (01) ==
LOC: ER 15:45
DX: S42.001A Fracture of unspecified part of right clavicle, initial encounter for closed fracture (principal); E03.9 Hypothyroidism, unspecified; Z56.0 Unemployment, unspecified; Z79.82 Long term (current) use of aspirin; Z79.899 Other long term (current) drug therapy; W18.39XA Other fall on same level, initial encounter; Y93.89 Activity, other specified; Y92.89 Other specified places as the place of occurrence of the external cause; Y99.8 Other external cause status
CPT/HCPCS: 73000; 99284

== ENCOUNTER 2023-07-01 09:22 | Emergency (ER) | payer MEDICAID ==
[~2023-07-01] VITALS: Ht 162.6 cm; Wt 84.1 kg
[~2023-07-01 09:22] MED LIST changes: -CEPH500C5 PO
[2023-07-01] MEDS ORDERED: iohexol 350MG/ML 100ml bottle IV ONE (09:27)
[2023-07-01 10:07] LABS: BASOPHILS % (AUTO) 0.6 % (0-1); EOSINOPHILS % (AUTO) 0 % (0-6); HEMATOCRIT 39.7 % (35.0-45.0); HEMOGLOBIN 12.8 g/dl (12.0-16.0); LYMPHOCYTES # (AUTO) 1.8 X10'3 (1.1-4.8); LYMPHOCYTES % (AUTO) 43.8 % (21-51); MEAN CORPUSCULAR HEMOGLOBIN 30.3 PG (27.0-31.0); MEAN CORPUSCULAR HGB CONC 32.2 g/dL (33.0-36.5); MEAN CORPUSCULAR VOLUME 94.3 FL (78-98); MEAN PLATELET VOLUME 7.2 FL (7.4-10.4); MONOCYTES # (AUTO) 0.3 X10'3 (0-0.9); MONOCYTES % (AUTO) 8.3 % (2-12); NEUTROPHILS % (AUTO) 47.3 % (42-75); PLATELET COUNT 339 X10'3 (140-440); RED BLOOD COUNT 4.22 X10'6 (4.20-5.60); WHITE BLOOD COUNT 4.2 X10'3 (4.5-11.0)
[2023-07-01 10:37] VITALS: PULSE 66
[2023-07-01 10:46] LABS: ALBUMIN 3.3 G/DL (3.4-5.0); ANION GAP 8 (8-16); BLOOD UREA NITROGEN 10 MG/DL (7-18); BUN/CREATININE RATIO 13.7 (10.0-20.0); CALCIUM 8.8 MG/DL (8.5-10.1); CHLORIDE 106 MMOL/L (99-107); CREATININE 0.73 MG/DL (0.40-0.90); GLUCOSE 74 MG/DL (70-104); POTASSIUM 3.7 MMOL/L (3.5-5.1); SODIUM 142 MMOL/L (135-145); TOTAL CARBON DIOXIDE 27.7 MMOL/L (24-32); eCRCL 72 ML/MIN; eGFR 82 ML/MIN
[2023-07-01 10:49] LABS: ETHANOL < 10 MG/DL (<10)
[2023-07-01 11:00] LABS: PROTHROMBIN TIME 10.4 SECONDS (9.0-12.0)
[2023-07-01 11:01] LABS: APTT 29 SECONDS (22-32)
[2023-07-01 12:54] LABS: BILIRUBIN,URINE NEGATIVE (Neg); CLARITY,URINE CLEAR (Clear); COLOR,URINE YELLOW (Yellow); GLUCOSE, URINE NEGATIVE (Neg); KETONES,URINE NEGATIVE (Neg); LEUKOCYTE ESTERASE ,URINE NEGATIVE (Neg); NITRITES, URINE NEGATIVE (Neg); OCCULT BLOOD,URINE NEGATIVE (Neg); PROTEIN,URINE NEGATIVE (Neg); UROBILINOGEN,URINE 0.2 E.U/dL (0.2-1.0)
[2023-07-01 13:08] LABS: UA COLLECTION TYPE CLN CATCH MIDSTREAM
[2023-07-01 13:22] LABS: URINE AMPHETAMINE SCREEN NEGATIVE (Neg); URINE METHADONE SCREEN NEGATIVE (Neg)
[2023-07-01 13:23] LABS: URINE BARBITUATE SCREEN NEGATIVE (Neg); URINE BENZODIAZEPINES SCREEN NEGATIVE (Neg); URINE CANNABINOID SCREEN NEGATIVE (Neg); URINE COCAINE SCREEN NEGATIVE (Neg); URINE OPIATE SCREEN NEGATIVE (Neg); URINE PHENCYCLIDINE SCREEN NEGATIVE (Neg)
[2023-07-01 14:15] VITALS: BP 105/67; RESP 16; O2SAT 97
== END 2023-07-01 14:18 | disposition home or self-care (01) ==
LOC: ER 09:23
DX: G40.909 Epilepsy, unspecified, not intractable, without status epilepticus (principal); R47.81 Slurred speech; R53.1 Weakness; Z56.0 Unemployment, unspecified; E03.9 Hypothyroidism, unspecified; Z79.82 Long term (current) use of aspirin; Z79.899 Other long term (current) drug therapy
CPT/HCPCS: 36415; 70450; 70496; 70498; 71045; 80048; 80305; 80320; 81003; 82948; 85025; 85610; 85730; 86885; 86900; 86901; 93005; 99285; J3490; Q9967